=== PATIENT | female | born 1990 | race Caucasian/White ===

== ENCOUNTER 2023-12-06 14:41 | Inpatient (IN) | payer OTHER ==
[2023-12-06 15:40] VITALS: BMI 21.7
[2023-12-06] MEDS ORDERED: NALOXONE (NARCAN) HCL 4 MG/0.1 ML SPRAY NS PRN (16:03)
[2023-12-06] MEDS ORDERED: BISMUTH SUBSALICYLATE 524 MG/30 ML PO PRN (16:03)
[2023-12-06] MEDS ORDERED: BENZOCAINE/MENTHOL (CHLORASEPTIC ) LOZENGE MM PRN (16:03)
[2023-12-06] MEDS ORDERED: POLYETHYLENE GLYCOL (HEALTHYLAX) 3350 17 GM PACKET PO PRN (16:03)
[2023-12-06] MEDS ORDERED: ACETAMINOPHEN 325 MG TABLET (FP) PO PRN (16:03)
[2023-12-06] MEDS ORDERED: ONDANSETRON *ODT* 4 MG TABLET SL PRN (16:03)
[2023-12-06] MEDS ORDERED: LOPERAMIDE HCL 2 MG CAPSULE PO PRN (16:03)
[2023-12-06] MEDS ORDERED: NALOXONE (NYS OPIOID OVERDOSE PROGRAM) 4 MG/0.1 ML SPRAY NS PRN (16:03)
[2023-12-06] MEDS ORDERED: guaiFENesin 600 MG TABLET.ER (FP) PO PRN (16:03)
[2023-12-06] MEDS ORDERED: DICYCLOMINE HCL 10 MG CAPSULE PO PRN (16:03)
[2023-12-06] MEDS ORDERED: IBUPROFEN 400 MG TABLET (FP) PO PRN (16:03)
[2023-12-06] MEDS ORDERED: NICOTINE POLACRILEX 2 MG LOZENGE BC PRN (16:03)
[2023-12-06] MEDS ORDERED: BUPRENORPHINE HCL 150 MCG, BUPRENORPHINE HCL 75 MCG BC PRN (16:03)
[2023-12-06] MEDS ORDERED: MAG HYDROX/AL HYDROX/SIMETH 30 ML UNIT-DOSE CUP PO PRN (16:03)
[2023-12-06] MEDS ORDERED: BENZONATATE 200 MG CAPSULE PO PRN (16:03)
[2023-12-06] MEDS ORDERED: MAGNESIUM HYDROX 2400MG/30ML ORAL SUSPENSION 30 ML CUP PO PRN (16:03)
[2023-12-06] MEDS: cloNIDine HCL 0.1 MG TABLET PO ONE ×2 (17:49→18:12)
[2023-12-06] MEDS: BUPRENORPHINE HCL 150 MCG, BUPRENORPHINE HCL 75 MCG BC ONE (18:12)
[2023-12-06] MEDS: NICOTINE POLACRILEX 2 MG GUM BUC PRN (19:49)
[2023-12-06] MEDS: hydrOXYzine PAMOATE 25 MG CAPSULE (FP) PO PRN (19:54)
[2023-12-06] MEDS ORDERED: cloNIDine HCL 0.1 MG TABLET PO PRN (20:03)
[2023-12-06] MEDS: THIAMINE 100 MG TABLET PO SCH (21:17)
[2023-12-06] MEDS: diazePAM 5 MG TABLET PO PRN (21:17)
[2023-12-06] MEDS: MELATONIN 5 MG TABLETS PO SCH (21:17)
[2023-12-07] MEDS ORDERED: BUPRENORPHINE HCL 150 MCG, BUPRENORPHINE HCL 75 MCG BC PRN
[2023-12-07] MEDS: BUPRENORPHINE HCL 150 MCG, BUPRENORPHINE HCL 75 MCG BC SCH (06:05)
[2023-12-07] MEDS: PRENATAL VITAMINS W/ FOLIC ACID TABLET (FP) PO SCH (10:14)
[2023-12-07] MEDS: FERROUS SO4 325 MG TABLET (FP) PO SCH (10:14)
[2023-12-07] MEDS: NICOTINE 14 MG/24 HOURS TOPICAL PATCH TD SCH (10:14)
[2023-12-07 12:00] LABS: HEMATOCRIT 40.9 % (32.4-45.2); HEMOGLOBIN 13.3 GM/dL (10.7-15.3); MCH 29.1 pg (25.7-33.7); MCHC 32.6 g/dl (32.0-36.0); MEAN CELL VOLUME 89.2 fl (80-96); MEAN PLT VOLUME 8.3 fl (7.5-11.1); PLATELET COUNT 275 10^3/uL (134-434); RBC 4.58 M/mm3 (3.60-5.2); RDW 13.8 % (11.6-15.6); WHITE BLOOD COUNT 6.7 K/mm3 (4.0-10.0)
[2023-12-07 13:17] LABS: CHLORIDE 110 mmol/L (98-107); POTASSIUM 4.3 mmol/L (3.5-5.1); SODIUM 141 mmol/L (136-145)
[2023-12-07 13:21] LABS: ALBUMIN 3.6 g/dl (3.4-5.0); ANION GAP 4 mmol/L (4-13); BLOOD UREA NITROGEN 15.9 mg/dL (7-18); CALCIUM 9.2 mg/dL (8.5-10.1); CO2 27 mmol/L (21-32); GLUCOSE,RANDOM 88 mg/dL (74-106)
[2023-12-07 13:24] LABS: SGOT/AST 13 U/L (15-37); SGPT/ALT 22 U/L (13-61)
[2023-12-07 13:26] LABS: BILIRUBIN,TOTAL 0.6 mg/dL (0.2-1)
[2023-12-07 13:27] LABS: ALK PHOS 85 U/L (45-117)
[2023-12-07] MEDS: MIRTAZAPINE 15 MG TABLET (FP) PO SCH (22:09)
[2023-12-08] MEDS: BUPRENORPHINE HCL 450 MCG FILM BC SCH (05:21)
[2023-12-08] MEDS: IBUPROFEN 600 MG TABLET (FP) PO PRN (17:16)
[2023-12-08] MEDS: METHOCARBAMOL 500 MG TABLET PO PRN (22:06)
[2023-12-09] MEDS: BUPRENORPHINE/NALOXONE 4 MG/1 MG FILM PACKET SL SCH (05:39)
[2023-12-09] MEDS ORDERED: P-EPHED 60MG/TRIPROLIDI 2.5MG TABLET PO PRN (09:44)
[2023-12-10] MEDS: BUPRENORPHINE/NALOXONE 8 MG/2 MG FILM PACKET SL ONE (05:30)
[2023-12-10 10:05] VITALS: BP 126/86; PULSE 90; RESP 16; TEMP 97.5
== END 2023-12-10 11:43 | disposition home or self-care (01) | DRG 773 ==
LOC: YASAS 14:41 → Y3N 16:42
PROVIDERS: ADMIT Allergy & Immunology; ATTEND Surgery
PROC: HZ2ZZZZ Detoxification Services for Substance Abuse Treatment (ICD-10-PCS; principal; 2023-12-06)
DX: F11.23 Opioid dependence with withdrawal (principal); F17.210 Nicotine dependence, cigarettes, uncomplicated; F19.282 Other psychoactive substance dependence with psychoactive substance-induced sleep disorder; F19.24 Other psychoactive substance dependence with psychoactive substance-induced mood disorder; F31.9 Bipolar disorder, unspecified; F53.0 Postpartum depression; Z87.59 Personal history of other complications of pregnancy, childbirth and the puerperium
CPT/HCPCS: 36415; 80053; 80305; 80307; 81025; 85027; 86780; 93005; 93010